=== PATIENT | female | born 1965 | race Hispanic/Latino ===

== ENCOUNTER 2018-01-27 13:07 | Outpatient (CLI) | payer BC | END 2018-01-27 13:08 | disposition home or self-care (01) | LOC: BICMAMMO 13:07 | PROVIDERS: ATTEND Family Medicine | DX: Z12.31 Encounter for screening mammogram for malignant neoplasm of breast (principal) | CPT/HCPCS: 77063; 77067 ==

== ENCOUNTER 2019-06-12 12:55 | Outpatient (CLI) | payer BC ==
[2019-06-12 13:43] LABS: #Basophils 0.1 thou/uL (0.0-0.2); #Eosinphils 0.1 thou/uL (0.0-0.7); #Lymphocytes 3.2 thou/uL (1.20-3.40); #Monocytes 0.4 thou/uL (0.11-0.59); #Neutrophils 3.7 thou/uL (1.40-6.50); %Basophils 1.1 % (0.0-1.0); %Eosinophils 1.6 % (0.0-10.0); %Lymphocytes 42.8 % (21.0-51.0); %Monocytes 5.8 % (0.0-10.0); %Neutrophils 48.8 % (42.0-75.0); Mean Corpuscular HGB CONC 34.5 g/dL (32.0-36.0); Mean Corpuscular Hemoglobin 30.1 pg (27.0-31.0); Mean Corpuscular Volume 87.5 fL (78.0-98.0); Mean Platelet Volume 8.1 fL (7.4-10.4); Platelet Count 294 thou/uL (130-400); RBC Distribution Width 12.6 % (11.5-14.5); Red Blood Cell (RBC) Count 4.63 mill/uL (4.20-5.40); White Blood Cell (WBC) Count 7.5 thou/uL (4.8-10.8)
[2019-06-12 14:03] LABS: ALT (SGPT) 23 U/L (8-55); AST (SGOT) 22 U/L (5-34); Albumin 4.4 g/dL (3.5-5.0); Alkaline Phosphatase 93 U/L (40-110); Anion Gap 10 mmol/L (10-20); BUN (Urea Nitrogen) 15 mg/dL (9.8-20.1); Bilirubin, Total 0.6 mg/dL (0.2-1.2); Calc. Creatinine Clearance 0 mL/min (70-130); Calcium 9.6 mg/dL (7.8-10.44); Carbon Dioxide 27 mmol/L (22-29); Chloride 105 mmol/L (98-107); Estimated GFR-MDRD 68; Globulin 3.1 g/dL (2.4-3.5); Glucose 90 mg/dL (70-105); Potassium 4.4 mmol/L (3.5-5.1); Protein, Total 7.5 g/dL (6.0-8.3); Sodium 138 mmol/L (136-145)
--- NOTE | 2019-06-16 09:38 | EKG ---
Test Reason : Blood Pressure : / mmHG Vent. Rate : 065 BPM Atrial Rate : 065 BPM P-R Int : 142 ms QRS Dur : 086 ms QT Int : 392 ms P-R-T Axes : 058 075 051 degrees QTc Int : 407 ms Normal sinus rhythm Normal ECG Confirmed by JES ARANGO ([id number]) on 06/16/2019 9:37:55 AM Referred By: ANILA Confirmed By:JES ARANGO
== END 2019-06-12 12:56 | disposition home or self-care (01) ==
LOC: LABBT 12:55
PROVIDERS: ATTEND Specialist
DX: Z01.818 Encounter for other preprocedural examination (principal); K80.12 Calculus of gallbladder with acute and chronic cholecystitis without obstruction
CPT/HCPCS: 80053; 85025; 93005; 93010

== ENCOUNTER 2019-06-15 06:06 | Day surgery (SDC) | payer BC ==
[2019-06-12 13:18] VITALS: BMI 28.3
--- NOTE | 2019-06-12 13:52 | HP ---
HISTORY OF PRESENT ILLNESS: Mony Lema is very is 54-year-old female with episodic epigastric, right flank pain since January. This is bothering her greatly, although since she has changed her diet, she has not had symptoms in the last few weeks. The patient has had a CAT scan of the abdomen and pelvis and ultrasound revealing changes consistent with gallstones. Last liver function tests were several months ago. She is followed by Dr. Cross. PAST SURGICAL HISTORY: . PAST MEDICAL HISTORY: Noncontributory except for thyroid. MEDICATIONS: Methimazole. ALLERGIES: NONE. TOBACCO: None. ALCOHOL: Rarely. PHYSICAL EXAMINATION: VITAL SIGNS: Weight 151 pounds, height 62 inches, blood pressure 109/58, pulse 66, temperature 96.4 degrees. HEAD, EARS, EYES, NOSE, AND THROAT: Unremarkable. Sclerae nonicteric. LUNGS: Clear to auscultation. CARDIAC: Regular rate and rhythm without murmur or gallop. ABDOMEN: Soft and nontender. No mass. EXTREMITIES: Unremarkable. SKIN: Nonjaundiced. NEUROLOGICAL: Intact. LYMPH NODES: No lymphadenopathy in neck, axilla, or groins. ASSESSMENT AND PLAN: Symptomatic gallstones. Recommend laparoscopic video cholecystectomy. Risks of infection, bleeding, visceral and biliary injury, and open procedure were discussed. She consents. Job ID: [id number]
[2019-06-15] MEDS ORDERED: Fentanyl 100 MCG/2 ML VIAL ONE (06:43)
[2019-06-15] MEDS ORDERED: Bupivacaine PF 0.5% 30 ML VIAL ONE (06:43)
[2019-06-15] MEDS ORDERED: Lidocaine 2% w/Epinephrine 1:200K 20 ML VIAL ONE (06:43)
[2019-06-15] MEDS ORDERED: HYDROmorphone 0.5 MG/0.5 ML SYRINGE ONE (06:44)
[2019-06-15] MEDS ORDERED: Levofloxacin 500 mg/D5W 100 ml Premix Bag ONE (07:09)
[2019-06-15] MEDS ORDERED: Acetaminophen 500 MG TAB ONE (07:09)
[2019-06-15] MEDS ORDERED: Scopolamine 1.5 mg/72 hour Patch ONE (07:10)
[2019-06-15] MEDS ORDERED: Ketorolac Tromethamine 30 MG/ML VIAL ONE (07:10)
[2019-06-15] MEDS ORDERED: Ondansetron PF 4 MG/2 ML Vial ONE (09:44)
[2019-06-15] MEDS ORDERED: PROPOFOL 200 MG/20 ML VIAL ONE (09:44)
[2019-06-15] MEDS ORDERED: Rocuronium Bromide 10 MG/ML (10ML VIAL) ONE (09:44)
[2019-06-15] MEDS ORDERED: Lidocaine 1% PF 5 ML VIAL ONE (09:44)
[2019-06-15] MEDS ORDERED: EPHEDRINE 25 MG/5 ML SYRINGE ONE (09:44)
[2019-06-15] MEDS ORDERED: Dexamethasone 20 MG/5 ML VIAL ONE (09:44)
[2019-06-15] MEDS ORDERED: Glycopyrrolate 0.2 MG/ML 5 ML SYRINGE ONE (09:44)
--- NOTE | 2019-06-15 09:53 | OP ---
DATE OF PROCEDURE: 06/15/2019 PREOPERATIVE DIAGNOSES: 1. Chronic cholecystitis. 2. Cholelithiasis. POSTOPERATIVE DIAGNOSES: 1. Chronic cholecystitis. 2. Cholelithiasis. PROCEDURE PERFORMED: Laparoscopic video cholecystectomy. ANESTHESIA: General, local with 0.5% Marcaine 30 mL mixed with 2% xylocaine with epinephrine 10 mL, 30 mL volume mixture used. FINDINGS: Multiple large stones, requiring crushing to remove. DESCRIPTION OF PROCEDURE: The patient was taken to the operating room, where under general anesthesia, abdomen was prepared with ChloraPrep and draped in routine fashion. Local anesthetic mixture was infiltrated into the skin and subcutaneous tissue about each port site. Infraumbilical incision was made and pneumoperitoneum to 15 mmHg obtained with a Veress needle, replaced with a 5 port. Video laparoscope inserted. Right subxiphoid incision was made, 11 port placed, right subcostal incision was made at midclavicular entrance line and 5 port was placed. Liver appeared to be normal. Gallbladder had multiple large stones. Fundus was grasped at the cephalad. Infundibulum was grasped and reflected laterally. Cystic artery and duct dissected free. Critical view obtained. Cystic artery and duct double clipped proximally, divided. Gallbladder dissected free from liver bed, obtaining good hemostasis prior to division of the final peritoneal attachments. Gallbladder and contents removed. Multiple large stones crushed and enable to be removal. Good hemostasis assured. Irrigant and pneumoperitoneum evacuated. All instruments were removed. All skin incisions were approximated with subdermal 4-0 Monocryl and Climax glue applied. Job ID: [id number]
--- NOTE | 2019-06-15 16:29 | EKG ---
Test Reason : POST OP Blood Pressure : / mmHG Vent. Rate : 052 BPM Atrial Rate : 052 BPM P-R Int : 148 ms QRS Dur : 098 ms QT Int : 458 ms P-R-T Axes : 031 065 047 degrees QTc Int : 425 ms Sinus bradycardia Otherwise normal ECG When compared with ECG of 12-JUN-2019 13:25, (Unconfirmed) No significant change was found Confirmed by DR. Yue BELLE ([id number]) on 06/15/2019 4:29:01 PM Referred By: EVITA Confirmed By:DR. Yue BELLE
== END 2019-06-15 12:00 | disposition home or self-care (01) ==
LOC: SDC 06:06
PROVIDERS: ATTEND Specialist
PROC: 0FT44ZZ Resection of Gallbladder, Percutaneous Endoscopic Approach (ICD-10-PCS; principal; 2019-06-15)
DX: K80.10 Calculus of gallbladder with chronic cholecystitis without obstruction (principal); Z79.899 Other long term (current) drug therapy
CPT/HCPCS: 88304; 93005; 93010; J1100; J1170; J1885; J1956; J2001; J2405; J2704; J3010; S0020

== ENCOUNTER 2022-03-20 18:00 | Outpatient (CLI) | payer BC | END 2022-03-20 18:01 | disposition home or self-care (01) | LOC: SLEEPLAB 18:00 | PROVIDERS: ATTEND Physician Assistant | DX: G47.9 Sleep disorder, unspecified (principal); R53.83 Other fatigue; R06.83 Snoring; G47.00 Insomnia, unspecified; G47.33 Obstructive sleep apnea (adult) (pediatric) | CPT/HCPCS: 95800 ==

== ENCOUNTER → 2022-08-09 | Outpatient (CLI) | payer BC | LOC: SLEEPLAB 19:30 | PROVIDERS: ATTEND Physician Assistant | DX: G47.33 Obstructive sleep apnea (adult) (pediatric) (principal); R06.83 Snoring; G47.10 Hypersomnia, unspecified; E66.9 Obesity, unspecified; Z68.28 Body mass index [BMI] 28.0-28.9, adult | CPT/HCPCS: 95811 ==